=== PATIENT | male | born 1985 | race Two or more races ===

== ENCOUNTER 2019-06-03 21:11 | Emergency (ER) | payer OTHER ==
[~2019-06-03] VITALS: Ht 182.9 cm; Wt 117.9 kg
--- NOTE | 2019-06-03 22:25 | NUR ---
Dr. Rao at bedside for MSE
[2019-06-03] MEDS ORDERED: IBUPROFEN 800 MG TABLET PO ONE (22:45)
[2019-06-03] MEDS ORDERED: IBUPROFEN 800 MG TABLET ONE ×2 (22:45→22:48)
[2019-06-03] MEDS ORDERED: AMOXICILLIN-CLAVUL 875-125MG TABLET PO ONE (22:45)
[2019-06-03] MEDS ORDERED: AMOXICILLIN-CLAVUL 875-125MG TABLET ONE (22:45)
--- NOTE | 2019-06-04 00:02 | NUR ---
Patient discharged to home in stable conditon. Written and verbal after care instructions given. Patient verbalizes understanding of instructions. Patient ambulating with steady gait
[2019-06-04 00:07] VITALS: BP 115/83
== END 2019-06-04 00:02 | disposition home or self-care (01) ==
LOC: ER 21:14
DX: K08.89 Other specified disorders of teeth and supporting structures (principal)
CPT/HCPCS: A4663